=== PATIENT | male | born 1995 | race Caucasian/White ===

== ENCOUNTER 2024-04-05 14:13 | Emergency (ER) | payer BC, SELFPAY ==
[2024-04-05 14:26] VITALS: BP 140/80
[2024-04-05 14:44] LABS: % Basophils 0.5 % (0-2); % Eosinophils 3.8 % (0-6); % Immature Granulocytes 0.2 % (0-0.5); % Lymphocytes 32.3 % (20.5-51.1); % Monocytes 10.8 % (1.7-9.3); % Neutrophils 52.4 % (42.2-75.2); Absolute Eosinophils 0.2 10^3/uL (0-0.7); Absolute Lymphocytes 1.8 10^3/uL (1.2-3.4); Absolute Monocytes 0.6 10^3/uL (0.1-0.6); Absolute Neutrophils 2.9 10^3/uL (1.4-6.5); Hematocrit 45.4 % (39.0-52.0); Hemoglobin 15.1 g/dL (13.0-18.0); Mean Corp Hgb Conc. 33.3 g/dL (33.0-37.0); Mean Corpuscular Hgb 30.6 pg (27.0-31.0); Mean Corpuscular Volume 92.1 fL (80.0-94.0); Mean Platelet Volume 9.1 fL (7.4-10.4); Nucleated Red Blood Cells % 0 % (-); Platelet Count 257 10^3/uL (130-400); Red Blood Cell Count 4.93 10^6/uL (4.70-6.10); Red Cell Dist. Width 13.2 % (11.5-14.5); White Blood Cell Count 5.6 10^3/uL (4.8-10.8)
[2024-04-05 15:02] LABS: ALT (SGPT) 15 U/L (0-50); AST (SGOT) 27 U/L (17-59); Albumin 4.9 g/dl (3.5-5.0); Alkaline Phosphatase 75 U/L (38-126); Blood Urea Nitrogen 17 mg/dl (9-20); Calcium 9.6 mg/dl (8.4-10.2); Carbon Dioxide 27 mmol/L (22-30); Chloride 102 mmol/L (98-107); Glucose 107 mg/dl (70-99); Potassium 4.5 mmol/L (3.5-5.1); Sodium 139 mmol/L (135-145); Total Bilirubin 1.1 mg/dl (0.2-1.3); eGFR > 60.00
[2024-04-05 15:14] LABS: Troponin I < 0.012 ng/ml
[2024-04-05 16:31] VITALS: BP 137/85
[2024-04-05 17:00] VITALS: BP 115/68
--- NOTE | 2024-04-05 17:29 | ED.GENMED ---
History of Present Illness
<Racheal Gilbert PA-C - Last Filed: 04/05/24 20:05>
General
Chief Complaint: Chest Pain
Source: patient
Exam Limitations: none
Time Seen by Provider: 04/05/24 17:22
Nursing documentation reviewed up to this point in time: agreed with
History of Present Illness
History of Present Illness:
29-year-old male with no past medical history present emergency department today with left-sided chest pain and shortness of breath for the past 2 days. Patient states that it started randomly when he was relaxing one day. Patient states that he
was not exerting himself or lifting weights, or doing anything specifically that brought on the pain. Patient states that the pain did not occur after eating. Patient denies any history of long distance travel, any history of cancer, any pain or
swelling in his legs. Patient denies any family history of cardiac disease. Patient denies abdominal pain, nausea, vomiting. Patient denies any fevers or chills, coughing. Patient states that he has had pain similar to this before but is gone
away on its own and this time it has persisted for multiple days. Patient rates his pain a 3 out of 10. Patient denies any syncopal episodes. Patient follows with the family doctor once a year. Patient feels like he is swelling in the area of
the left side of his chest.
Review of Systems
<Racheal Gilbert PA-C - Last Filed: 04/05/24 20:05>
Review of Systems
All Other Systems: ROS reviewed and negative except as documented in HPI and ROS
Phy Exam
<Racheal Gilbert PA-C - Last Filed: 04/05/24 20:05>
Physical Exam
Physical Exam:
General: Patient is well appearing and in no acute distress; non-toxic
Skin: Warm and dry, no rashes or lesions. I am not able to appreciate any swelling of the left external chest wall.
Head: Normocephalic, atraumatic
Eyes: Sclera non-icteric. EOMs intact.
Cardiac: Regular rate and rhythm, no murmurs. No tenderness palpation external chest wall. No palpable crepitus.
Peripheral Vascular: No lower extremity swelling or edema.
Pulm: Normal respiratory effort, no wheezes, rales, rhonchi.
Abdomen: No abdominal tenderness
Neuro: CN II-XII intact, no focal neurologic deficits.
Psychiatric: Appropriate mood and affect.
Scores
<Racheal Gilbert PA-C - Last Filed: 04/05/24 20:05>
Heart Score for Chest Pain Patients
STEMI patient?: No
History: Slightly or Non-Suspicious
ECG: Nonspecific Repolarization
Age: </= 45 years
Risk Factors: No Risk Factors
Troponin: </= Normal Limit
Heart Score for Chest Pain Patients: 1
Heart Score Risk: 2.5% MACE over next 6 weeks
PERC Rule Criteria
Age <50 years: Yes
HR <100 bpm: Yes
Room air oxygen sat >94%: Yes
History of DVT or PE: No
Recent trauma or surgery: No
Hemoptysis: No
Exogenous estrogen: No
Clinical signs suggestive of DVT: No
: No
Considered low risk for PE: Yes
PERC Score: 0
PE can be excluded by PERC: Yes
<Toni Lan DO - Last Filed: 04/05/24 18:10>
PERC Rule Criteria
PERC Score: 0
PE can be excluded by PERC: Yes
Course
<Racheal Gilbert PA-C - Last Filed: 04/05/24 20:05>
Orders/Labs/Results
Orders:
Orders
04/05/24 14:23
Electrocardiogram (*1) Urgent
Reason for Study: Chest Pain
EKG- Treatment ONCE
04/05/24 14:29
Complete Blood Count/With Diff Urgent
Comprehensive Metabolic Panel Urgent
Troponin I Urgent
04/05/24 17:21
CR Chest - 2 Views Urgent
Comment:
Reason For Exam: chest pain, shortness of breath
04/05/24 17:36
Ibuprofen [Motrin] 600 mg PO NOW STA
Abnormal Lab Results
04/05/24
14:29
Monocytes % 10.8 H %
(1.7-9.3)
Glucose 107 H mg/dl
(70-99)
04/05/24 14:29
04/05/24 14:29
Vital Signs
Initial and Last Documented VS:
Initial Vital Signs
Temp Pulse Resp BP Pulse Ox
98.0 F 74 16 140/80 98
04/05/24 14:26 04/05/24 14:26 04/05/24 14:26 04/05/24 14:26 04/05/24 14:26
Last Documented Vital Signs
Temp Pulse Resp BP Pulse Ox
98.0 F 65 11 133/81 99
04/05/24 14:26 04/05/24 18:08 04/05/24 18:08 04/05/24 18:08 04/05/24 18:08
<Toni Lan, DO - Last Filed: 04/05/24 18:10>
Orders/Labs/Results
Orders:
Orders
04/05/24 14:23
Electrocardiogram (*1) Urgent
Reason for Study: Chest Pain
EKG- Treatment ONCE
04/05/24 14:29
Complete Blood Count/With Diff Urgent
Comprehensive Metabolic Panel Urgent
Troponin I Urgent
04/05/24 17:21
CR Chest - 2 Views Urgent
Comment:
Reason For Exam: chest pain, shortness of breath
04/05/24 17:36
Ibuprofen [Motrin] 600 mg PO NOW STA
Abnormal Lab Results
04/05/24
14:29
Monocytes % 10.8 H %
(1.7-9.3)
Glucose 107 H mg/dl
(70-99)
04/05/24 14:29
04/05/24 14:29
Vital Signs
Initial and Last Documented VS:
Initial Vital Signs
Temp Pulse Resp BP Pulse Ox
98.0 F 74 16 140/80 98
04/05/24 14:26 04/05/24 14:26 04/05/24 14:26 04/05/24 14:26 04/05/24 14:26
Last Documented Vital Signs
Temp Pulse Resp BP Pulse Ox
98.0 F 65 11 133/81 99
04/05/24 14:26 04/05/24 18:08 04/05/24 18:08 04/05/24 18:08 04/05/24 18:08
Lissettelt;Racheal Gilbert PA-C - Last Filed: 04/05/24 20:05>
MDM/Problems Addressed
Differential Diagnosis Includes:
Differentials include musculoskeletal sprain/strain, costochondritis, pneumothorax, pulmonary embolism, ACS
MDM/Problems Addressed:
Chest pain:
29-year-old male with no past medical history present emergency department today with left-sided chest pain and shortness of breath for the past 2 days. Patient states that it started randomly when he was relaxing one day. Denies any family
history of cardiac disease. Vital signs are stable. EKG demonstrates a left axis deviation, however patient has had this for many years and states that he has been worked up for this in the past. He is PERC rule causes to rule out PE clinically.
Chest x-ray negative for pneumothorax. Troponin negative, can rely on this patient has had symptoms for multiple days. Patient stable for discharge at this point, likely musculoskeletal/costochondritis, patient will follow-up with his primary care
provider in a week for reassessment.
Chronic conditions affecting care:
n/a
Acute Exacerbation and/or Progression of Chronic Illness:
n/a
<Racheal Gilbert PA-C - Last Filed: 04/05/24 20:05>
*Radiology
Radiology exam reviewed: preliminary read by ED provider (No acute cardiopulmonary abnormality )
*Pulse Oximetry
Patient hypoxic: no
*EKG
Interpreted by ED Provider?: Yes
EKG Intrepretation Date: 04/05/24
Interpretation: abnormal
Comparison EKG: no changes
Heart Rate: 69
Rate: normal
Rhythm: sinus
[place]: left axis deviation
Interval: normal interval, normal QT interval and normal SC interval
*Critical Care Note
Total Time (30-74mins, 75-104mins- exclusive of procedures): Not Applicable
Data Reviewed
Review of Other/Old Records Reveals: Records (No previous ER records to review) and Discharge Summary (No previous history started to review)
Source: patient and records
<Racheal Gilbert PA-C - Last Filed: 04/05/24 20:05>
Patient Management
Escalation/DeEscalation of care consider admission/obs:
Admit not indicated, I reviewed this case with my attending Dr. Lan
ED Attending Note
<Racheal Gilbert PA-C - Last Filed: 04/05/24 20:05>
-
Portions of this chart may have been created with voice recognition software.� Occasional wrong word or��sound alike� substitutions may have occurred due to the inherent limitations of voice recognition software.
<Toni Lan DO - Last Filed: 04/05/24 18:10>
ED Attending Note
Patient seen and examined by attending physician: Yes
I performed the substantive portion of visit, reviewed & personally made and approve the management plan that is documented in note by myself or FE.: Yes
ED Attending Note:
I have seen and evaluated the patient with a [id number] encounter. I have spoken to the advance practicer provider and involved in the medical history, the physical exam, medical decision making.
Evaluation and management service: agree unless noted differently below.
Results interpretation: agree unless noted differently below.
Focused HPI: 29-year-old male presenting with intermittent left chest pain. He states it is random. Not worse with exertion or leaning forward. No preceding infections. His PCP sent him to the ER for further evaluation
Physical exam: Sitting in bed comfortably. Heart regular rate and rhythm. No murmur
Medical Decision Making: Given nonexertional component with nonischemic EKG and normal troponin x-ray, discussed noncardiac chest pain and follow-up PCP. Patient has left axis on his EKG but states this has been seen before and he was worked up
with an echocardiogram and was told everything was normal
Discharge Plan
Departure
Patient Disposition: Home (Routine Discharge)
Date of Disposition: 04/05/24
Time of Disposition: 18:04
Patient with high blood pressure during this ER visit?: Yes
Condition: Good
Discharge Problem:
Chest pain
Instructions: Chest pain, BLOOD PRESSURE
Referrals:
Warner Le CRNP [Family Provider] -
Activity Restrictions/Additional Instructions:
Please follow up with your primary care provider in a week for reassessment.
Please return to the ER should you develop an acute worsening of your symptoms, dizziness, lightheadedness, worsening breathing, tongue or lip swelling, or any other signs or symptoms concerning to you.
Interventions
Interventions:
*Risk Screen - Suicide Last Done: 04/05/24 18:11
*General Assessment Last Done: 04/05/24 18:11
*Neglect/Abuse Screening Last Done: 04/05/24 18:11
ED- Fall Risk Assessment Last Done: 04/05/24 18:11
*ED COVID-19 Vaccine History Last Done: 04/05/24 14:26
*Nursing Disposition Last Done: 04/05/24 18:11
ED- Cardiac Assessment Last Done: 04/05/24 16:45
Discharge Date and Time
Discharge Date/Time: 04/05/24 18:11
Print Language: QATARI
[2024-04-05] MEDS: MOTRIN 600 MG PO (17:58)
[2024-04-05 18:08] VITALS: BP 133/81
== END 2024-04-05 18:11 | disposition home or self-care (01) ==
LOC: EMR 14:13
PROVIDERS: Emergency Medicine; EMERGENCY PHYSICIAN Student in an Organized Health Care Education/Training Program; FAMILY PHYSICIAN Nurse Practitioner Family
DX: R07.89 Other chest pain (principal); R03.0 Elevated blood-pressure reading, without diagnosis of hypertension
CPT/HCPCS: 99285; 71046; 80053; 84484; 85025; 93005